=== PATIENT | male | born 1995 | race Two or more races ===

== ENCOUNTER 2024-05-08 19:52 | Emergency (ER) | payer OTHER ==
[~2024-05-08] VITALS: Ht 180.3 cm; Wt 90.9 kg
[2024-05-08 21:25] VITALS: BP 137/90; PULSE 100; RESP 20; TEMP 99; O2SAT 98
[2024-05-08] MEDS ORDERED: IBUP-1456 PO (22:06)
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
== END 2024-05-08 22:08 | disposition home or self-care (01) ==
LOC: ER 19:52
DX: S80.12XA Contusion of left lower leg, initial encounter (principal); V43.62XA Car passenger injured in collision with other type car in traffic accident, initial encounter; Y93.89 Activity, other specified; Y92.410 Unspecified street and highway as the place of occurrence of the external cause; Y99.8 Other external cause status

== ENCOUNTER 2024-08-20 09:51 | Emergency (ER) | payer OTHER ==
[~2024-08-20] VITALS: Ht 180.3 cm; Wt 82.0 kg
[~2024-08-20 09:51] MED LIST: IBUP-1456 PO
[2024-08-20 10:48] VITALS: BP 114/74; PULSE 86; RESP 16; TEMP 97.8; O2SAT 96
--- NOTE | 2024-08-20 11:54 | DVH ---
CLINICAL INDICATION: pain. r/o fracture TECHNIQUE: XY R FOOT 3 VIEW XRAY Comparison: None FINDINGS/IMPRESSION: : There is no evidence of acute fracture or dislocation. Soft tissues are unremarkable. Surgical plate and screw fixation of the talus.
--- NOTE | 2024-08-20 11:56 | DVH ---
CLINICAL INDICATION: pain. r/o fracture TECHNIQUE: 3 radiographic views of the right ankle were obtained. Comparison: None FINDINGS/IMPRESSION: There is no evidence of acute fracture or dislocation. The visualized joint space is well maintained. The alignment is anatomical. There is no radiopaque foreign body.
[2024-08-20] MEDS ORDERED: TRAM50TA2 PO (12:42)
--- NOTE | 2024-08-20 12:42 | ED.PDOC ---
Musculoskeletal HPI Comments 29 year old male w/ chronic Left foot pain presents for atraumatic foot pain No injury or trauma Started 3 days ago while standing and pain is aggravated with prolonged ambulation Denies erythema, swelling, f/c/n/v/d Chief Complaint: Lower Extremity Time Seen by MD: 10:38 Primary Care Provider: UNKNOWN Reviewed Notes: Nurses Notes, Medications, Allergies Allergies: Coded Allergies: NO KNOWN ALLERGIES (Unverified , 05/08/24) Home Meds Active Scripts Tramadol Hcl (Tramadol Hcl) 50 Mg Tab, 50 MG PO Q8HP PRN for 5 Days, #15 TAB 0 Refills Prov:MICHAEL MORLEY NP 08/20/24 Ibuprofen (Ibuprofen) 800 Mg Tab, 1 TAB PO TID PRN, #30 TAB 0 Refills Prov:VU RACHEL 05/08/24 Information Source: Patient Mode of Arrival: Ambulatory Past Medical History PAST MEDICAL HISTORY: Denies Surgical History: Denies all surgeries Family History Family History: Unknown Social History Smoker: Non-Smoker Alcohol: Denies ETOH Use Drugs: Denies Drug Use Lives In: Home All Other Systems: Reviewed and Negative (per hpi) Physical Exam General Appearance: No Apparent Distress, Normal HEENT: Normal ENT Inspection, Pharynx Normal, TMs Normal Neck: Full Range of Motion, Non-Tender, Normal, Normal Inspection Respiratory: Chest Non-Tender, Lungs Clear, No Accessory Muscle Use, No Respiratory Distress, Normal Breath Sounds Cardiovascular: No Edema, No JVD, No Murmur, No Gallop, Normal Peripheral Pulses, Regular Rate/Rhythm Breast Exam: Deferred Gastrointestinal: No Organomegaly, Non Tender, No Pulsatile Mass, Normal Bowel Sounds, Soft Genitalia: Deferred Pelvic: Deferred Rectal: Deferred Extremities: No calf tenderness, Normal capillary refill, Normal inspection, Normal range of motion, Non-tender, No pedal edema Musculoskeletal : Location: Left Extremity Location: Foot (no gross abnormality. no redness. localized TTP to the superior and inferior extensor retinaculum. distal sensation intact. ) Apperance: Normal Neurologic: Alert, No Motor Deficits, Normal Affect, No Sensory Deficits Cerebellar Function: Normal Reflexes: Normal Skin: Dry, Normal Color, Warm Lymphatic: No Adenopathy Was a procedure done? Was a procedure done?: No Differential Diagnosis EXT Differential Diagnosis: Sprain X-Ray, Labs, Meds, VS Vital Signs Date Time Temp Pulse Resp B/P (MAP) Pulse Ox O2 Delivery O2 Flow Rate FiO2 08/20/24 10:48 86 08/20/24 10:48 97.8 86 16 114/74 (87) 96 97.8 08/20/24 10:21 97.8 86 16 114/74 (87) 96 97.8 X-Ray, Labs, Meds, VS Comment ROS physical examination there were no red flags. Findings consistent with a sprain. Suspect inflammation of the tendon. Discussed rice and NSAIDs as needed for pain return precautions were discussed On reevaluation, patient had symptomatic improvement. Patient is stable for discharge at this time. External notes reviewed. Test results and diagnostic imaging interpreted. All diagnostic findings, discharge care, education and instructions provided Follow-up with PCP in 2 to 3 days Patient verbalized understanding and agreed to treatment plan Vital signs stable, afebrile, no acute distress noted Patient ambulatory with strong steady gait Advised to return precautions for any new or worsening symptoms, return to ER immediately for re-evaluation Patient is aware that the purpose of this visit was for an acute medical emergency requiring emergent stabilization. Chronic conditions, including malignancies have not been ruled out. Patient is instructed to follow up with PCP as directed and discharge instructions for continued care and workup. If unable to arrange follow-up, patient is to return to the emergency department for reassessment. Patient (parent or legal guardian if applicable) was given verbal and written discharge instructions and acknowledges understanding. Time of 1ST Reevaluation: 12:30 Reevaluation 1ST: Improved Patient Education/Counseling: Diagnosis, Treatment Family Education/Counseling: Diagnosis, Treatment Departure 1 Departure Time of Disposition: 12:40 Impression: Primary Impression: Left foot pain Disposition: 01 HOME / SELF CARE / HOMELESS Condition: Stable e-Prescriptions Tramadol Hcl (Tramadol Hcl) 50 Mg Tab 50 MG PO Q8HP PRN for 5 Days, #15 TAB 0 Refills Prov: MICHAEL MORLEY NP 08/20/24 Critical Care Note Critical Care Time?: No Stability Stability form required: No Heart Score Heart Score: Heart Score Response (Comments) Value History N/A 0 EKG N/A 0 Age N/A 0 Risk Factors N/A 0 Troponin N/A 0 Total 0 MICHAEL MORLEY NP Aug 20, 2024 12:42
== END 2024-08-20 12:48 | disposition home or self-care (01) ==
LOC: ER 09:51
DX: M79.672 Pain in left foot (principal); Z79.899 Other long term (current) drug therapy
CPT/HCPCS: 73610; 73630